=== PATIENT | female | born 1960 ===

== ENCOUNTER 2017-06-08 12:33 | Outpatient (CLI) | payer OTHER ==
--- NOTE | 2017-06-08 13:18 | XRay Report ---
LUMBOSACRAL SPINE, 3 VIEWS: History: Back pain Findings: Borderline osteopenia is suspected. Normal height and alignment of the vertebral bodies. No evidence for fracture, subluxation or bone lesion. Minimal spondylosis is noted. Impression: Minimal degenerative changes. Borderline osteopenia. No acute process.
== END 2017-06-08 12:34 | disposition home or self-care (01) ==
LOC: SPVIMAG 12:33
PROVIDERS: ATTEND Family Medicine
DX: M47.896 Other spondylosis, lumbar region (principal)
CPT/HCPCS: 72100

== ENCOUNTER 2017-07-07 10:52 | Outpatient (CLI) | payer OTHER ==
--- NOTE | 2017-07-07 11:21 | Mammography Report ---
BONE DENSITY STUDY: DEFINITIONS: BMD = Bone Mineral Density T-score = BMD related to mean peak bone mass of young adult (mean expressed in Standard Deviation) Z-score = Age matched BMD expressed in SD World Health Organization (WHO) Diagnostic Criteria Normal T-score > -1 SD Osteopenia T-score between -1 and -2.4 SD Osteoporosis T-score -2.5 SD or below FINDINGS: The weighted average BMD of lumbar spine L1-L4 is 0.780 with a T-score of -3.4. The weighted average BMD of hip is 0.794 with a T-score of -1.5. IMPRESSION: The patient's T-score is diagnostic for osteoporosis and high relative risk for fracture. NOTE: BMD is not the only risk factor for fracture; also consider factors such as the patient's age, risk of falling, previous osteoporotic fracture, family history of osteoporotic fractures, current smoker, and low body weight. Hernadez's triangle is a region of interest in femur, predominantly of trabecular bone. It is not a true anatomic site, and [facility] does not recommend its use clinically.
== END 2017-07-07 10:53 | disposition home or self-care (01) ==
LOC: SPVWC 10:52
PROVIDERS: ATTEND Family Medicine
DX: M81.0 Age-related osteoporosis without current pathological fracture (principal); M85.88 Other specified disorders of bone density and structure, other site
CPT/HCPCS: 77080